=== PATIENT | female | born 1995 | race Caucasian/White ===

== ENCOUNTER 2016-10-13 16:24 | Emergency (ER) | payer OTHER ==
[~2016-10-13] VITALS: Ht 165.1 cm; Wt 77.1 kg
[2016-10-13] MEDS ORDERED: ACETAMINOPHEN TAB 650MG DOSE (2X325MG) PO ONE (20:15)
[2016-10-13 21:00] VITALS: BP 125/73
== END 2016-10-13 21:10 | disposition home or self-care (01) ==
LOC: M ED 18:04
DX: F32.9 Major depressive disorder, single episode, unspecified (principal)

== ENCOUNTER → 2021-05-12 | Outpatient (REF) ==
[2021-05-12 14:18] LABS: RSV AMPLIFICATION NEGATIVE (NEGATIVE)
== END ==
LOC: M EMP 13:17
PROVIDERS: ATTEND Family Medicine
DX: Z20.822 Contact with and (suspected) exposure to COVID-19 (principal)

== ENCOUNTER 2021-07-14 19:11 | Outpatient (CLI) ==
[~2021-07-14] VITALS: Ht 165.1 cm; Wt 93.3 kg
[2021-07-14 19:43] VITALS: BP 113/65
[2021-07-14] MEDS ORDERED: FIORICET TAB PO ONE (20:05)
== END 2021-07-14 21:25 | disposition home or self-care (01) ==
LOC: M LDO 19:11
PROVIDERS: ATTEND Obstetrics & Gynecology
DX: O26.893 Other specified pregnancy related conditions, third trimester (principal); R51.9 Headache, unspecified; Z3A.00 Weeks of gestation of pregnancy not specified
CPT/HCPCS: 59025; G0463

== ENCOUNTER → 2022-01-26 | Outpatient (REF) | LOC: M LABSMTC 11:17 | PROVIDERS: ATTEND Family Medicine | DX: Z11.52 Encounter for screening for COVID-19 (principal) ==

== ENCOUNTER → 2022-04-11 | Outpatient (REF) | LOC: M EMP 10:01 | PROVIDERS: ATTEND Family Medicine | DX: Z20.822 Contact with and (suspected) exposure to COVID-19 (principal) ==